=== PATIENT | female | born 1960 | race Caucasian/White ===

== ENCOUNTER → 2024-07-02 13:26 | Outpatient (REF) | payer OTHER, SELFPAY | LOC: HWWDC 13:26 | PROVIDERS: ATTENDING PHYSICIAN Nurse Practitioner Family; REFERRING PHYSICIAN Internal Medicine Hematology & Oncology | DX: Z12.31 Encounter for screening mammogram for malignant neoplasm of breast (principal) | CPT/HCPCS: 77063; 77067 ==

== ENCOUNTER → 2024-07-11 13:26 | Outpatient (REF) | payer OTHER, SELFPAY | LOC: HWRAD 13:26 | PROVIDERS: ATTENDING PHYSICIAN Nurse Practitioner Family | DX: Z78.0 Asymptomatic menopausal state (principal) | CPT/HCPCS: 77080 ==

== ENCOUNTER → 2025-06-17 13:30 | Outpatient (REF) | payer OTHER, SELFPAY | LOC: HWRCS 13:30 | PROVIDERS: ATTENDING PHYSICIAN Nurse Practitioner Family | DX: R01.1 Cardiac murmur, unspecified (principal) | CPT/HCPCS: 93306 ==

== ENCOUNTER → 2025-07-17 13:12 | Outpatient (REF) | payer OTHER, SELFPAY | LOC: HWWDC 13:12 | PROVIDERS: ATTENDING PHYSICIAN Nurse Practitioner Family; REFERRING PHYSICIAN Internal Medicine Hematology & Oncology | DX: Z12.31 Encounter for screening mammogram for malignant neoplasm of breast (principal) | CPT/HCPCS: 77063; 77067 ==